=== PATIENT | female | born 1985 | race Caucasian/White ===

== ENCOUNTER 2018-04-10 13:46 | Outpatient (REF) | payer MEDICAID, SELFPAY ==
[2018-04-10 21:06] LABS: Abs Immature Grans 0.02 k/cumm (0.0-0.09); Absolute Basophil Count 0.03 k/cumm (0.0-0.2); Absolute Lymphocyte Count 1.82 k/cumm (1.2-3.4); Absolute Monocyte Count 0.63 k/cumm (0.11-0.7); Absolute Neutrophil Count 6.05 k/cumm (1.2-6.7); Basophils % 0.3; Eosinophils % 1.2; HCT 43.5 % (36.0-46.0); HGB 14.4 g/dL (12.0-15.5); Immature Grans % 0.2; Mean Corp. HGB Concentration 33.1 g/dL (32.0-36.0); Mean Corpuscular Hemoglobin 32.9 pg (27.0-33.0); Mean Corpuscular Volume 99.3 fL (80-95); Mean Platelet Volume 10.7 fL (8.0-11.0); Monocytes % 7.3; Platelet Count 240 x1000/uL (130-400); RBC 4.38 m/cumm (4.00-5.20); RBC Distribution Width 11.5 % (11.7-14.6); White Blood Cell Count 8.65 k/cumm (4.4-10.8)
[2018-04-10 21:31] LABS: ALT 28 U/L (12-78); AST 22 U/L (15-37); Albumin 4.2 g/dL (3.4-5.0); Alkaline Phosphatase 100 U/L (46-116); Anion Gap 14.1 mmol/L (3-11); BUN 14 mg/dL (7-18); Bilirubin, Total 0.5 mg/dL (0.2-1.0); CO2 22.9 mmol/L (21.0-32.0); CREATININE 0.69 mg/dL (0.55-1.02); Calcium 8.9 mg/dL (8.5-10.1); Chloride 105 mmol/L (98-107); Glucose 79 mg/dL (70-100); Potassium 3.9 mmol/L (3.5-5.1); Sodium 142 mmol/L (136-145); TSH (W/Ref FT4) 2.08 uIU/mL (0.358-3.74); Total Protein 7.8 g/dL (6.4-8.2)
== END 2018-04-10 14:06 ==
LOC: NCHCN 13:46
PROVIDERS: PCP Nurse Practitioner Family; Visit Provider Nurse Practitioner
DX: R19.7 Diarrhea, unspecified (principal); R10.84 Generalized abdominal pain; R19.8 Other specified symptoms and signs involving the digestive system and abdomen
CPT/HCPCS: 80053; 84443; 85025

== ENCOUNTER 2018-04-12 01:02 | Outpatient (CLI) | payer MEDICAID, SELFPAY ==
--- NOTE | 2018-04-12 09:50 | DI.COMBO_ITS ---
SYMPTOM/DIAGNOSIS: ABD PAIN, IRREGULAR BOWEL HABITS, R19.8, R10.84 ABDOMEN: The bowel gas pattern has a normal appearance. There is a normal quantity of stool, seen mainly in the right side of the colon. There is no abnormal colonic or small bowel or gastric distension. An IUD is incidentally noted. No organomegaly or urinary tract calculi are seen. No bony abnormalities are seen. IMPRESSION: Negative abdomen.
== END 2018-04-12 01:22 ==
PROVIDERS: PCP Nurse Practitioner Family; Visit Provider Nurse Practitioner
DX: R19.4 Change in bowel habit (principal); R10.84 Generalized abdominal pain
CPT/HCPCS: 74018

== ENCOUNTER 2018-08-27 11:20 | Emergency (ER) | payer MEDICAID, SELFPAY ==
[2018-08-27 11:23] VITALS: BP 134/100; PULSE 100; RESP 18; TEMP 36.8; O2SAT 100
--- NOTE | 2018-08-27 11:34 | DI.RAD_ITS ---
SYMPTOMS/DIAGNOSIS: FALL, PAIN, BRUISING LEFT ELBOW: Three views. No acute fracture or dislocation is identified. The soft tissues are unremarkable. IMPRESSION: No acute abnormality.
--- NOTE | 2018-08-27 11:35 | W.ED.GENAD ---
Discharge Plan Disposition Patient Disposition: HOME Condition: Improving Discharge Details Chief Complaint: Laceration Clinical Impression: Laceration of occipital scalp, Contusion of elbow, left Primary Care Provider: Lelia Mas ED Provider: Sandor Ball Home Meds and New Rx's Prescriptions: New cephalexin 500 mg capsule 500 mg PO TID 7 Days Qty: 21 RF: 0 Continued citalopram 20 MG tablet 20 mg PO DAILY Qty: 30 RF: 2 ibuprofen 600 MG tablet 600 mg PO Q6H PRN PRN (Reason: Abdominal Pain) Qty: 30 RF: 1 Discharge Instructions Instructions: Contusion in Adults (ED) Additional Instructions: Please return or see [facility] for removal of selena in 7 days time. Take antibiotics as prescribed. Continue both Tylenol and/or ibuprofen as needed for discomfort. Ice will reduce discomfort as well. Use sling as needed for comfort 2-3 days time. Return for any acute concern. 4-0 Prolene sutures were placed, they should be removed in the emergency department or in regular doctor's office in 7-10 days time. Small area with tissue adhesive/glue will wear off over proxy 1 week's time. Medical Decision Making 32-year-old female presents from Dr. Barraza's office where she presented this morning for evaluation of a slip and fall down the stairs with striking of her head last night. She also has dull, achy left elbow pain. She denies loss of consciousness. Her tetanus status is up-to-date. Referred for CT of the head to rule out skull fracture or intracranial injury as well as left elbow radiograph to rule out underlying bony injury. Topical anesthesia placed on laceration. CT scan of the head unremarkable, radiograph of the left elbow without evidence of fracture. Wound was anesthetized, irrigated, examined in a bloodless field without evidence of foreign body. Wound edges widely and therefore decision made to repair with large interrupted sutures rather than selena. There was a second small laceration measuring approximate 2 mm it was repaired with tissue adhesive. HPI General Mode of arrival: ambulatory. Date/Time Provider Initiated Documentation: 08/27/18 11:29. Limitations to Documentation: no limitations. Information obtained by: patient. History of Present Illness 32 year old F presents to the emergency department with the chief complaint of Fall last night downstairs, had injury and scalp laceration, L elbow pain, described as moderate, Quality is described as aching, and is localized to the head. Patient reports no radiation. Patient started experiencing this hour(s) and it has been constant. No relieving factors improve symptom(s), No exacerbating factors reported . Patient notes no other symptoms.. Related Data Home Medications Medication Instructions Recorded Confirmed ibuprofen 600 mg PO Q6H PRN PRN #30 tablet 10/24/16 citalopram 20 mg PO DAILY #30 tab-cap 03/13/17 cephalexin 500 mg PO TID 7 Days #21 cap 08/27/18 Previous Rx's Medication Instructions Recorded ibuprofen 600 mg PO Q6H PRN PRN #30 tablet 10/24/16 citalopram 20 mg PO DAILY #30 tab-cap 03/13/17 cephalexin 500 mg PO TID 7 Days #21 cap 08/27/18 Allergies Allergy/AdvReac Type Severity Reaction Status Date / Time No Known Allergies Allergy Unverified 03/30/17 10:31 General Stated Complaint: Laceration MEREDITH: 4 Review of Systems Review of Systems 6 systems reviewed and otherwise negative [facility] Medical History Abnormal Pap smear of cervix Anxiety and depression BMI 33.0-33.9,adult Depression History of hypertension IUD (intrauterine device) in place Neoplasm of uncertain behavior of skin Family History Mother No problems noted. Father Hyperlipidemia Brother Asthma Other Depression Essential hypertension Hypothyroidism Social History Smoking and Tabacco status: Never Exam Narrative Exam Narrative: GEN: awake, alert, oriented 3. Pleasant, well groomed, interactive. HEAD: Normocephalic, left superior occipital approximately 1.5 inch laceration. ENT: Mucous membranes moist, oropharynx unremarkable, External ear exam unremarkable EYES: PERRL, EOMI NECK: Full ROM, no YVONNE, no menigismus CHEST/RESP: Nontender, clear to auscultation bilateral, no wheeze/rhonchi/rales CARDIOVASCULAR: RRR, no murmur, rub juan. 2+ Rad pulse bilateral Back: Nontender, no step-off or deform ABDOMEN: Soft, nontender, no mass. +Bowel sounds EXT: Full ROM, no edema, no rash. Ecchymosis and tenderness around the left elbow. Range of motion intact, distal motor and sensory testing normal Neuro: Grossly normal neurologic exam, conversant, interactive. Psych: Speech fluent, thoughts congruent, affect normal Course Vital Signs Temperature 36.8 C 08/27/18 11:23 Pulse 100 H 08/27/18 11:23 Respiratory Rate 18 08/27/18 11:23 Blood Pressure 134/100 H 08/27/18 11:23 Pulse Oximetry 100 08/27/18 11:23 Temperature 36.8 C 08/27/18 11:23 Temperature Source Skin 08/27/18 11:23 Pulse 100 H 08/27/18 11:23 Respiratory Rate 18 08/27/18 11:23 Respiratory Effort Non-Labored 08/27/18 11:27 Blood Pressure 134/100 H 08/27/18 11:23 Pulse Oximetry 100 08/27/18 11:23 Oxygen Delivery Method Room Air 08/27/18 11:23 Oxygen Flow Rate 0 08/27/18 11:23 Pain Level 7 08/27/18 11:23 Procedures Laceration Laceration 1: Site: scalp Side (If applicable): left Size (cm): 5 Description: linear Depth: simple, single layer Local Anesthetic: Lidocaine 1% Pre-repair: wound explored Skin layer closed with: other (prolene) Size (cm): 4-0 Number of sutures: 4
--- NOTE | 2018-08-27 11:38 | ED.GENADUL_ITS ---
Discharge Plan Disposition Patient Disposition: HOME Condition: Improving Discharge Details Chief Complaint: Laceration Clinical Impression: Laceration of occipital scalp, Contusion of elbow, left Primary Care Provider: Lelia Mas ED Provider: Sandor Ball Home Meds and New Rx's Prescriptions: New cephalexin 500 mg capsule 500 mg PO TID 7 Days Qty: 21 RF: 0 Continued citalopram 20 MG tablet 20 mg PO DAILY Qty: 30 RF: 2 ibuprofen 600 MG tablet 600 mg PO Q6H PRN PRN (Reason: Abdominal Pain) Qty: 30 RF: 1 Discharge Instructions Instructions: Contusion in Adults (ED) Additional Instructions: Please return or see [facility] for removal of selena in 7 days time. Take antibiotics as prescribed. Continue both Tylenol and/or ibuprofen as needed for discomfort. Ice will reduce discomfort as well. Use sling as needed for comfort 2-3 days time. Return for any acute concern. 4-0 Prolene sutures were placed, they should be removed in the emergency department or in regular doctor's office in 7-10 days time. Small area with tissue adhesive/glue will wear off over proxy 1 week's time. Medical Decision Making 32-year-old female presents from Dr. Barraza's office where she presented this morning for evaluation of a slip and fall down the stairs with striking of her head last night. She also has dull, achy left elbow pain. She denies loss of consciousness. Her tetanus status is up-to-date. Referred for CT of the head to rule out skull fracture or intracranial injury as well as left elbow radiograph to rule out underlying bony injury. Topical anesthesia placed on laceration. CT scan of the head unremarkable, radiograph of the left elbow without evidence of fracture. Wound was anesthetized, irrigated, examined in a bloodless field without evidence of foreign body. Wound edges widely and therefore decision made to repair with large interrupted sutures rather than selena. There was a second small laceration measuring approximate 2 mm it was repaired with tissue adhesive. HPI General Mode of arrival: ambulatory . Date/Time Provider Initiated Documentation: 08/27/18 11:29 . Limitations to Documentation: no limitations . Information obtained by: patient . History of Present Illness 32 year old F presents to the emergency department with the chief complaint of Fall last night downstairs, had injury and scalp laceration, L elbow pain, described as moderate, Quality is described as aching, and is localized to the head. Patient reports no radiation. Patient started experiencing this hour(s) and it has been constant. No relieving factors improve symptom(s), No exacerbating factors reported . Patient notes no other symptoms.. Related Data Home Medications Medication Instructions Recorded Confirmed ibuprofen 600 mg PO Q6H PRN PRN #30 tablet 10/24/16 citalopram 20 mg PO DAILY #30 tab-cap 03/13/17 cephalexin 500 mg PO TID 7 Days #21 cap 08/27/18 Previous Rx's Medication Instructions Recorded ibuprofen 600 mg PO Q6H PRN PRN #30 tablet 10/24/16 citalopram 20 mg PO DAILY #30 tab-cap 03/13/17 cephalexin 500 mg PO TID 7 Days #21 cap 08/27/18 Allergies Allergy/AdvReac Type Severity Reaction Status Date / Time No Known Allergies Allergy Unverified 03/30/17 10:31 General Stated Complaint: Laceration MEREDITH: 4 Review of Systems Review of Systems 6 systems reviewed and otherwise negative [facility] Medical History Abnormal Pap smear of cervix Anxiety and depression BMI 33.0-33.9,adult Depression History of hypertension IUD (intrauterine device) in place Neoplasm of uncertain behavior of skin Family History Mother No problems noted. Father Hyperlipidemia Brother Asthma Other Depression Essential hypertension Hypothyroidism Social History Smoking and Tabacco status: Never Exam Narrative Exam Narrative: GEN: awake, alert, oriented 3. Pleasant, well groomed, interactive. HEAD: Normocephalic, left superior occipital approximately 1.5 inch laceration. ENT: Mucous membranes moist, oropharynx unremarkable, External ear exam unremarkable EYES: PERRL, EOMI NECK: Full ROM, no YVONNE, no menigismus CHEST/RESP: Nontender, clear to auscultation bilateral, no wheeze/rhonchi/rales CARDIOVASCULAR: RRR, no murmur, rub juan. 2+ Rad pulse bilateral Back: Nontender, no step-off or deform ABDOMEN: Soft, nontender, no mass. +Bowel sounds EXT: Full ROM, no edema, no rash. Ecchymosis and tenderness around the left elbow. Range of motion intact, distal motor and sensory testing normal Neuro: Grossly normal neurologic exam, conversant, interactive. Psych: Speech fluent, thoughts congruent, affect normal Course Vital Signs Temperature 36.8 C 08/27/18 11:23 Pulse 100 H 08/27/18 11:23 Respiratory Rate 18 08/27/18 11:23 Blood Pressure 134/100 H 08/27/18 11:23 Pulse Oximetry 100 08/27/18 11:23 Temperature 36.8 C 08/27/18 11:23 Temperature Source Skin 08/27/18 11:23 Pulse 100 H 08/27/18 11:23 Respiratory Rate 18 08/27/18 11:23 Respiratory Effort Non-Labored 08/27/18 11:27 Blood Pressure 134/100 H 08/27/18 11:23 Pulse Oximetry 100 08/27/18 11:23 Oxygen Delivery Method Room Air 08/27/18 11:23 Oxygen Flow Rate 0 08/27/18 11:23 Pain Level 7 08/27/18 11:23 Procedures Laceration Laceration 1: Site: scalp Side (If applicable): left Size (cm): 5 Description: linear Depth: simple, single layer Local Anesthetic: Lidocaine 1% Pre-repair: wound explored Skin layer closed with: other (prolene) Size (cm): 4-0 Number of sutures: 4
[2018-08-27] MEDS: Lidocaine/Epinephri/Tetracaine Topical Gel 3 ML TP (11:42)
--- NOTE | 2018-08-27 12:03 | DI.CT_ITS ---
SYMPTOMS/DIAGNOSIS: FALL, POSTERIOR TRAUMA AND PAIN CT BRAIN: Noncontrast. No priors. There is a normal uribe/white matter differentiation. The ventricles are intact. The basilar cisterns are patent. No intracranial hemorrhage, acute midline shift or mass effect. The visualized paranasal sinuses are clear. The mastoid air cells are well pneumatized. There is no evidence of a calvarial fracture. There is a scalp hematoma overlying the left parietal bone. IMPRESSION: 1. No acute intracranial process. No skull fracture. 2. Left parietal scalp hematoma. The findings were discussed with Dr. Sandor Ball of the emergency department on the date of the examination.
[2018-08-27] MEDS: Ketorolac 10 MG TAB PO (13:00)
[2018-08-27 13:25] VITALS: BP 134/100; PULSE 100; RESP 18; TEMP 36.8; O2SAT 100
== END 2018-08-27 13:02 | disposition home or self-care (01) ==
PROVIDERS: Emergency Provider Emergency Medicine; PCP Nurse Practitioner Family
DX: S09.90XA Unspecified injury of head, initial encounter (principal); S01.01XA Laceration without foreign body of scalp, initial encounter; S50.02XA Contusion of left elbow, initial encounter; W10.8XXA Fall (on) (from) other stairs and steps, initial encounter
CPT/HCPCS: 12001; 99284; 70450; 73080; 99281; L3650

== ENCOUNTER 2018-11-12 10:52 | Outpatient (REF) | payer MEDICAID, SELFPAY ==
[2018-11-12 21:56] LABS: Abs Immature Grans 0.05 k/cumm (0.0-0.09); Absolute Basophil Count 0.02 k/cumm (0.0-0.2); Absolute Eosinophil Count 0.08 k/cumm (0.0-0.7); Absolute Lymphocyte Count 1.65 k/cumm (1.2-3.4); Absolute Monocyte Count 0.49 k/cumm (0.11-0.7); Absolute Neutrophil Count 4.44 k/cumm (1.2-6.7); Basophils % 0.3; Eosinophils % 1.2; HCT 45.1 % (36.0-46.0); HGB 14.5 g/dL (12.0-15.5); Immature Grans % 0.7; Lymphocytes % 24.5; Mean Corp. HGB Concentration 32.2 g/dL (32.0-36.0); Mean Corpuscular Hemoglobin 32.7 pg (27.0-33.0); Mean Corpuscular Volume 101.8 fL (80-95); Mean Platelet Volume 10.8 fL (8.0-11.0); Monocytes % 7.3; Platelet Count 268 x1000/uL (130-400); RBC 4.43 m/cumm (4.00-5.20); RBC Distribution Width 11.9 % (11.7-14.6); White Blood Cell Count 6.73 k/cumm (4.4-10.8)
[2018-11-12 22:31] LABS: TSH (W/Ref FT4) 1.99 uIU/mL (0.358-3.74); Vitamin B12 285 pg/mL (193-986)
[2018-11-14 05:10] LABS: Vitamin D 25 Total 31.9 ng/ml (30-100)
== END 2018-11-12 11:12 ==
LOC: NCHCN 10:52
PROVIDERS: PCP Nurse Practitioner Family; Visit Provider Nurse Practitioner Family
DX: R53.83 Other fatigue (principal); R20.8 Other disturbances of skin sensation
CPT/HCPCS: 82306; 82607; 84443; 85025

== ENCOUNTER 2019-01-18 14:01 | Emergency (ER) | payer MEDICAID, SELFPAY ==
[2019-01-18] VITALS (25 sets, daily range): BP systolic 106–137; BP diastolic 61–106; PULSE 0–139; RESP 13–29; TEMP 36.6; O2SAT 90–98
--- NOTE | 2019-01-18 14:01 | DI.RAD_ITS ---
SYMPTOM/DIAGNOSIS: TRAUMA LEFT ELBOW: Three views. No acute fracture or dislocation is seen. Radiopaque densities are seen in the soft tissues overlying the olecranon process. IMPRESSION: 1. No acute fracture or dislocation 2. Debris seen in the soft tissues overlying the olecranon.
--- NOTE | 2019-01-18 14:01 | DI.RAD_ITS ---
SYMPTOM/DIAGNOSIS: PAIN, TRAUMA LEFT KNEE: Four views. No acute fracture or dislocation is seen. There is swelling of the soft tissues in the prepatellar region. No radiopaque foreign bodies are seen. IMPRESSION: No acute fracture or dislocation.
--- NOTE | 2019-01-18 14:01 | DI.CT_ITS ---
SYMPTOM/DIAGNOSIS: TRAUMA, ALTERED CT BRAIN: Noncontrast. Comparison 08/27/18 The ventricles and sulci are consistent with the patient's age. No acute intracranial hemorrhage, midline shift or mass effect is identified. The ventricles are intact. The basilar cisterns are patent. The visualized paranasal sinuses are clear. No fluid levels are seen. The mastoid air cells are well pneumatized. The calvarium is intact. There is patient motion artifact present. This does limit the examination. IMPRESSION: No acute intracranial process. CT CERVICAL SPINE: Multiple contiguous axial images of the cervical spine were obtained. Sagittal and coronal reformatted images were also performed. There is patient motion artifact present. This does limit the integrity of the examination. There is straightening of the normal cervical curvature. No definite acute fracture or subluxation is seen. The patient motion artifact is most significant from the C3 through C5 level. There is no prevertebral soft tissue swelling. The lung apices are clear. There are mildly enlarged lymph nodes seen in the neck. The largest has a short axis diameter of 8 mm. IMPRESSION: 1. Patient motion artifact limiting examination of the mid cervical spine. If there is continued concern for a cervical spine fracture a repeat CT scan of the cervical spine should be obtained.
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
[2019-01-18] MEDS: fentaNYL 100 MCG/2 ML VIAL 50 MCG IVP (14:13)
[2019-01-18 14:21] LABS: Abs Immature Grans 0.04 k/cumm (0.0-0.09); Absolute Basophil Count 0.04 k/cumm (0.0-0.2); Absolute Lymphocyte Count 3.84 k/cumm (1.2-3.4); Basophils % 0.3; Eosinophils % 0.8; HCT 41.3 % (36.0-46.0); HGB 13.9 g/dL (12.0-15.5); Immature Grans % 0.3; Lymphocytes % 32.6; Mean Corp. HGB Concentration 33.7 g/dL (32.0-36.0); Mean Corpuscular Hemoglobin 32.4 pg (27.0-33.0); Mean Corpuscular Volume 96.3 fL (80-95); Mean Platelet Volume 9.7 fL (8.0-11.0); Monocytes % 5.3; Neutrophils % 60.7; Platelet Count 372 x1000/uL (130-400); RBC 4.29 m/cumm (4.00-5.20); RBC Distribution Width 11.5 % (11.7-14.6); White Blood Cell Count 11.79 k/cumm (4.4-10.8)
[2019-01-18 14:22] LABS: Absolute Eosinophil Count 0.09 k/cumm (0.0-0.7); Absolute Monocyte Count 0.62 k/cumm (0.11-0.7); Absolute Neutrophil Count 7.16 k/cumm (1.2-6.7)
[2019-01-18 15:00] LABS: ALT 22 U/L (12-78); AST 18 U/L (15-37); Albumin 4.1 g/dL (3.4-5.0); Alkaline Phosphatase 75 U/L (46-116); Anion Gap 14.3 mmol/L (3-11); BUN 11 mg/dL (7-18); Bilirubin, Total 0.2 mg/dL (0.2-1.0); CO2 22.7 mmol/L (21.0-32.0); CREATININE 0.79 mg/dL (0.55-1.02); Chloride 109 mmol/L (98-107); Glucose 91 mg/dL (70-100); Potassium 4.1 mmol/L (3.5-5.1); Sodium 146 mmol/L (136-145); Total Protein 7.7 g/dL (6.4-8.2)
[2019-01-18 15:07] LABS: ETHANOL BLOOD 310.2 mg/dL (<3)
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
[2019-01-18 15:23] LABS: *AMPHETAMINES SCREEN URINE Negative (Negative); *BARBITURATES SCREEN URINE Negative (Negative); *BENZODIAZEPINES SCREEN URINE Negative (Negative); Cannabinoids THC Negative (Negative); Cocaine Screen,Urine Negative (Negative); METHADONE URINE SCREEN Negative (Negative); OPIATES URINE SCREEN Negative (Negative)
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
[2019-01-18 15:26] LABS: Tricyclic Antidepressants Negative (Negative)
[2019-01-18] MEDS: HYDROmorphone 2 MG/ML VIAL 1 MG IVP ×2 (15:27→19:50)
--- NOTE | 2019-01-18 15:30 | DI.RAD_ITS ---
SYMPTOM/DIAGNOSIS: PAIN, SWELLING RIGHT HAND: Three views. No acute fracture or dislocation is identified. There is soft tissue swelling of the hand particularly medially. There are radiopaque densities seen in the soft tissues of the medial aspect of the right little finger. IMPRESSION: No acute fracture or dislocation. 2. Radiopaque densities seen in the soft tissues of the right little finger.
--- NOTE | 2019-01-18 15:30 | NUR.NOTE ---
Nursing Note: pt to second CT
--- NOTE | 2019-01-18 15:42 | DI.CT_ITS ---
SYMPTOM/DIAGNOSIS: TRAUMA CT CERVICAL SPINE: Multiple contiguous axial images of the cervical spine were obtained. There is very mild patient motion artifact present. There is normal alignment. No acute fractures or subluxations are seen. The C-1 and C2 junction is well maintained. There is no prevertebral soft tissue swelling. IMPRESSION: No acute fracture or subluxation in the cervical spine.
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
[2019-01-18] MEDS: Normal Saline 1,000 ML 1000 ML IV (16:04)
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
[2019-01-18] MEDS: THIAMINE 100 MG in Normal Saline 100 ML 200 MG IVPB (16:12)
[2019-01-18] MEDS: LORazepam 2 MG/ML VIAL 0.5 MG IVP (17:27)
--- NOTE | 2019-01-18 21:17 | NUR.NOTE ---
Addendum entered by Mel Marinelli 01/18/19 23:08: not able to suture left elbow. bacitracin, telfa, gauze and kerlex wrap to the elbow. Original Note: Nursing Note: all abrasions cleaned with hibiclens and saline, bacatricin applied to all areas. left elbow and right 5th finger LMX cream applied, right 5th finger DSD, left elbow sutured by MD. patient ambulated to BR without difficulty voided qs, taking po fluids well, no n/v.
--- NOTE | 2019-01-19 03:41 | NUR.NOTE ---
faxed referal to [facility] on 01/19/19Nursing Note:
== END 2019-01-18 22:45 | disposition home or self-care (01) ==
PROVIDERS: Emergency Provider Student in an Organized Health Care Education/Training Program; PCP Nurse Practitioner Family
DX: S51.012A Laceration without foreign body of left elbow, initial encounter (principal); S61.226A Laceration with foreign body of right little finger without damage to nail, initial encounter; S50.811A Abrasion of right forearm, initial encounter; S80.212A Abrasion, left knee, initial encounter; M25.562 Pain in left knee; M54.5 Low back pain; V87.8XXA Person injured in other specified noncollision transport accidents involving motor vehicle (traffic), initial encounter; F10.120 Alcohol abuse with intoxication, uncomplicated; Y90.8 Blood alcohol level of 240 mg/100 ml or more
CPT/HCPCS: 36415; 74177; 80053; 80307; 96361; 96365; 96375; 96376; 99285; 70450; 71260; 72125; 73080; 73130; 73564; 80320; 85025; J2060; J3010

== ENCOUNTER 2019-01-30 12:26 | Outpatient (REF) | payer MEDICAID, SELFPAY ==
[2019-01-30 21:43] LABS: ALT 25 U/L (12-78); AST 13 U/L (15-37); Albumin 2.6 g/dL (3.4-5.0); Alkaline Phosphatase 66 U/L (46-116); Anion Gap 10.3 mmol/L (3-11); BUN 16 mg/dL (7-18); Bilirubin, Total 0.2 mg/dL (0.2-1.0); CO2 24.7 mmol/L (21.0-32.0); CREATININE 0.78 mg/dL (0.55-1.02); Calcium 9.2 mg/dL (8.5-10.1); Chloride 108 mmol/L (98-107); Glucose 85 mg/dL (70-100); Potassium 4.5 mmol/L (3.5-5.1); Sodium 143 mmol/L (136-145); Total Protein 7.6 g/dL (6.4-8.2)
== END 2019-01-30 12:46 ==
LOC: NCHCN 12:26
PROVIDERS: PCP Nurse Practitioner Family; Visit Provider Nurse Practitioner Family
DX: Z79.1 Long term (current) use of non-steroidal anti-inflammatories (NSAID) (principal)
CPT/HCPCS: 80053

== ENCOUNTER 2019-02-07 21:11 | Emergency (ER) | payer MEDICAID, SELFPAY ==
[2019-02-07 21:10] VITALS: BP 130/81; PULSE 130; RESP 16; TEMP 36.6; O2SAT 98
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
--- NOTE | 2019-02-07 21:35 | NUR.NOTE ---
Nursing Note: Patient reports that she had her Elbow smashed off a table. When patient was in the bathroom this song writer noted multiple abrasions in various stages of healing along with bruises. She has an kimberly bandage on her L knee. Patient also has a black eye at this time.
--- NOTE | 2019-02-07 22:13 | DI.RAD_ITS ---
SYMPTOM/DIAGNOSIS: RE INJURY, HIT ELBOW ON TABLE LEFT ELBOW: Three views were obtained. There is no evidence of an elbow joint effusion or hemarthrosis. No evidence of acute fracture.
--- NOTE | 2019-02-07 22:30 | DI.VRAD_ITS ---
EXAM: XR Left Elbow EXAM DATE/TIME: 02/07/2019 9:39 PM CLINICAL HISTORY: 33 years old, female; Injury or trauma; Injury history: Hit elbow against table; Initial encounter; Abrasion and wound; Left; Injury date: 02/07/2019 TECHNIQUE: Imaging protocol: XR Left elbow. Views: 3 or more views. COMPARISON: CR XR elbow LT complete 01/18/2019 2:46 PM FINDINGS: Bones/joints: Typical for age. No evidence of acute fracture. Soft tissues: Unremarkable. IMPRESSION: No acute findings. Dictated and Authenticated by: Jonnathan Tavarez MD. Ordering:MARGARITA Ac MD
[2019-02-07 22:35] VITALS: BP 130/81; PULSE 80; RESP 16; TEMP 36.6; O2SAT 98
== END 2019-02-07 22:36 | disposition other institution (70) ==
PROVIDERS: Emergency Provider Emergency Medicine; PCP Nurse Practitioner Family
DX: S59.902A Unspecified injury of left elbow, initial encounter (principal); F10.120 Alcohol abuse with intoxication, uncomplicated; W22.09XA Striking against other stationary object, initial encounter
CPT/HCPCS: 81025; 99285; 73080; 99284

== ENCOUNTER 2019-02-17 01:24 | Outpatient (CLI) | payer MEDICAID, SELFPAY ==
--- NOTE | 2019-02-17 11:14 | DI.RAD_ITS ---
SYMPTOM/DIAGNOSIS: BACK PAIN M54.89 SACRUM: 02/17 Two views were obtained. S-I joints show minimal spurring and slight sclerosis is noted in the iliac bones without specific evidence of sacroiliitis. No other bony abnormality seen. Note is made of an IUD in the pelvic midline.
--- NOTE | 2019-02-17 11:15 | DI.RAD_ITS ---
SYMPTOM/DIAGNOSIS: ELBOW PAIN M25.522 LEFT ELBOW: 02/17/19 Three views were obtained. The fat pads are unremarkable with no evidence of a joint effusion. No bony abnormality seen.
== END 2019-02-17 01:44 ==
PROVIDERS: PCP Nurse Practitioner Family; Visit Provider Nurse Practitioner Family
DX: M54.5 Low back pain (principal); Z97.5 Presence of (intrauterine) contraceptive device; M53.3 Sacrococcygeal disorders, not elsewhere classified; M25.522 Pain in left elbow
CPT/HCPCS: 72220; 73080

== ENCOUNTER 2019-04-08 01:33 | Outpatient (CLI) | payer MEDICAID, SELFPAY ==
--- NOTE | 2019-04-08 11:01 | DI.MRI_ITS ---
EXAM: MR LUMBAR SPINE WO CLINICAL HISTORY: low back pain and numbness along the left LE, M54.5. TECHNIQUE: Multiplanar multisequence MRI was performed. COMPARISON: XR sacrum from 02/17/2019 FINDINGS: Vertebral bodies are well maintained in height. The T12-L1, L1-2 discs appear intact. At L2-3, there is disc bulging which is eccentric toward the left causing slight neural foraminal narrowing. At L3- 4, there is mild disc bulging eccentric toward the right which encroaches on the right neural foramen . At L4-5, there is disc bulging eccentric toward the left, encroaching on the left neural foramen. At L5-S1, there is no significant disc bulging or neural foraminal encroachment. There is no centra l canal stenosis at any level. The conus medullaris appears normal. IMPRESSION: Multilevel asymmetric disc bulging causing neural foraminal narrowing to mild degree.
== END 2019-04-08 01:53 ==
PROVIDERS: PCP Nurse Practitioner Family; Visit Provider Physician Assistant
DX: M54.5 Low back pain (principal); R20.0 Anesthesia of skin; M99.53 Intervertebral disc stenosis of neural canal of lumbar region
CPT/HCPCS: 72148

== ENCOUNTER 2019-04-30 09:33 | Outpatient (CLI) | payer MEDICAID, SELFPAY ==
--- NOTE | 2019-04-30 09:27 | DI.RAD_ITS ---
EXAM: XR ELBOW LT COMPLETE INDICATION: Left elbow injury. COMPARISON: XR elbow LT complete from 02/07/2019 XR elbow LT complete from 02/17/2019 TECHNIQUE: 2D digital imaging was performed. FINDINGS: No bone or joint abnormality is identified. The soft tissues are unremarkable.
== END 2019-04-30 09:53 ==
PROVIDERS: PCP Nurse Practitioner Family; Visit Provider Physician Assistant
DX: M25.522 Pain in left elbow (principal); S50.02XA Contusion of left elbow, initial encounter
CPT/HCPCS: 73080

== ENCOUNTER 2019-06-17 07:20 | Outpatient (CLI) | payer MEDICAID, SELFPAY ==
[2019-06-17 07:29] VITALS: BP 113/78; PULSE 86; RESP 22; TEMP 37.4; O2SAT 100
--- NOTE | 2019-06-17 08:31 | PDOC.PAIN_ITS ---
Pain Clinic Procedure Note Procedure Note Procedure Note: INTRA-ARTICULAR SI JOINT INJECTION BENNIE SILVA has been referred to the [facility] for intra- articular SI joint injection. COMMENTS: patient reports bilateral buttock pain, consistent with sacroiliac joint mediated pain. She was evaluated by Mirtha Rose APRN for left sided SI pain, however, on brief examination today prior to procedure, pt exhibits tenderness to bilateral PSIS. Patient was interviewed and the medical record reviewed. There were no medical, pharmacologic, radiographic or other structural contraindications to attempting fluoroscopically guided intra-articular SI joint injection. Risks and expected side effects as well as potential benefit of the procedure were reviewed and voiced concerns addressed. The printed consent form was signed and witnessed. Standard time-out procedure was performed. Patient was placed in the prone position on the fluoroscopy table and automated blood pressure cuff and pulse oximeter applied. The skin entry point for approaching bilateral SI joints was identified under the most advantageous fluoroscopic view and marked. Following thorough Chlorhexadine preparation of the skin and draping and 1% lidocaine infiltration of the skin entry point and subcutaneous tissues, a 22 gauge spinal needle was placed under fluoroscopic guidance into bilateral SI joints was identified under the most advantageous fluoroscopic view and marked. Following thorough Chlorhexadine preparation of the skin and draping and 1% lidocaine infiltration of the skin entry point and subcutaneous tissues, a 22 gauge spinal needle was placed under fluoroscopic guidance into bilateral SI joint. Intra-articular placement was confirmed by a clear arthrogram resulting from the injection of 0.25ml Omnipaque 240, 1ml 1% lidocaine, and 40mg Depomedrol were injected intra-articularily with an initial reproduction of a significant component of the usual pain. Vital signs were stable throughout the procedure and were as recorded in the docflowsheet by the nursing staff. If given, dosages of intravenous drugs for anxiolysis and analgesia were documented in MAR. Follow up plans and appointments were discussed with the patient. Post procedure instruction was given as documented in nursing documentation and having met discharge criteria, and was discharged from the [facility]. COMMENTS: patient tolerated procedure well. Sushil Foote MD Pain Management CC: Lelia Mas
[2019-06-17 08:42] VITALS: BP 108/68; PULSE 75; RESP 20; O2SAT 100
[2019-06-17] MEDS: Omnipaque 240 MG/ML 50 ML BTL IJ (09:04)
[2019-06-17] MEDS: methylPREDNISolone ACETATE 80 MG/ML VIAL IJ (09:04)
--- NOTE | 2019-06-17 09:22 | DI.RAD_ITS ---
EXAM: XR PAIN CLINIC SACRIOILIAC 2V CLINICAL HISTORY: Dx: Sacroiliac Joint Dysfunction,sacroiliac joint injection TECHNIQUE: Fluoroscopy was provided for the referring physician for guidance with performing injecti on procedure. COMPARISON: No exams were available for comparison FINDINGS: Please see procedure note for details. FLUORO TIME: 29.6 seconds
== END 2019-06-17 07:40 ==
PROVIDERS: PCP Nurse Practitioner Family; Visit Provider Internal Medicine
DX: M53.3 Sacrococcygeal disorders, not elsewhere classified (principal)
CPT/HCPCS: 27096; 72200; J1040; Q9967

== ENCOUNTER 2019-07-24 15:54 | Outpatient (CLI) | payer MEDICAID, SELFPAY ==
--- NOTE | 2019-07-24 13:35 | DI.RAD_ITS ---
EXAM: XR THORACIC SPINE COMPLETE INDICATION: RIGHT THORACIC BACK PAIN, M54.6. COMPARISON: No exams were available for comparison TECHNIQUE: 2D digital imaging was performed. FINDINGS: There is normal alignment of the thoracic spine. Mild degenerative changes are seen in the spine. T he paraspinal lines appear intact. No acute fracture or subluxation is seen. IMPRESSION: Mild degenerative changes in the thoracic spine.
== END 2019-07-24 16:14 ==
PROVIDERS: PCP Nurse Practitioner Family; Visit Provider Nurse Practitioner Family
DX: M54.6 Pain in thoracic spine (principal); M47.814 Spondylosis without myelopathy or radiculopathy, thoracic region
CPT/HCPCS: 72072

== ENCOUNTER 2020-03-10 16:30 | Outpatient (REF) | payer MEDICAID, SELFPAY | END 2020-03-10 16:50 | LOC: NCHCN 16:30 | PROVIDERS: PCP Nurse Practitioner Family; Visit Provider Nurse Practitioner Family | DX: R39.15 Urgency of urination (principal) | CPT/HCPCS: 87480; 87510; 87660 ==

== ENCOUNTER 2020-03-25 09:36 | Outpatient (REF) | payer MEDICAID, SELFPAY ==
--- NOTE | 2020-03-25 09:15 | PAPFT_PTH ---
PATIENT: Antonio Huizar LOC: [facility]#:[id number] AGE/SX: 34/F ROOM: RE03/25/[address]: Tabatha Ortega : 1985 BED: DIS: 03/25/2020 SPEC #: [id number] RECD: 03/26/20 12:55 STATUS: LURDES REQ #: [id number] STEPHANIE: 03/25/20 09:[address]: Tabatha Ortega DEPT: [facility] Cytology RECD BY: Ebony Christianson ENTERED: 03/26/20 12:56 SP TYPE: PAPFT OTHR DR: Lelia Mas Tissues: 1 - CX/ENDOCX FOR PAP SMEARS Procedures: PAP THIN PREP/UVM Screening HPV DNA PROBE Comments: [id number] (CHLAMYDIA/GC)
[2020-03-29 14:38] LABS: Chlamydia Result Negative (Negative); GC Result Negative (Negative)
== END 2020-03-25 09:56 ==
LOC: NCHCN 09:36
PROVIDERS: PCP Nurse Practitioner Family; Visit Provider Family Medicine
DX: N89.8 Other specified noninflammatory disorders of vagina (principal); R39.15 Urgency of urination; Z12.4 Encounter for screening for malignant neoplasm of cervix; Z01.419 Encounter for gynecological examination (general) (routine) without abnormal findings; Z11.51 Encounter for screening for human papillomavirus (HPV); Z11.3 Encounter for screening for infections with a predominantly sexual mode of transmission; Z97.5 Presence of (intrauterine) contraceptive device
CPT/HCPCS: 87491; 87591; 88142; 87086; 87480; 87510; 87624; 87660

== ENCOUNTER 2020-04-12 20:29 | Inpatient (IN) | payer MEDICAID, SELFPAY ==
[2020-04-12] VITALS (14 sets, daily range): BP systolic 121; BP diastolic 86; PULSE 103–124; RESP 14–18; TEMP 37.1; O2SAT 96–100
--- NOTE | 2020-04-12 20:30 | RT.EKG_ITS ---
APPROVED REPORT Exam: Resting ECG Patient Location: E HR:112 bpm ECG Measurements Heart Rate 112 AXIS ND 149 P 58 QRSd 97 QRS 72 QT 341 T 48 QTc 466 Conclusion Sinus tachycardia. rate 112. Left atrial enlargement.
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
[2020-04-12] MEDS: Lactated Ringers 1,000 ML 1000 ML IV (20:59)
[2020-04-12 21:09] LABS: Abs Immature Grans 0.07 10^3/uL (0.0-0.06); Absolute Basophil Count 0.04 10^3/uL (0.0-0.2); Absolute Eosinophil Count 0.12 10^3/uL (0.0-0.7); Absolute Lymphocyte Count 2.47 10^3/uL (1.2-3.4); Absolute Monocyte Count 0.44 10^3/uL (0.1-0.8); Absolute Neutrophil Count 6.45 10^3/uL (1.2-6.7); Basophils % 0.4; Eosinophils % 1.3; HCT 46.4 % (36.0-46.0); Immature Grans % 0.7; Lymphocytes % 25.8; MCH 30.5 pg (27.0-33.0); MCHC 32.3 % (32.0-36.0); MCV 94.5 fL (80-95); MPV 10.1 fL (8.0-11.0); Monocytes % 4.6; Neutrophils % 67.2; Nucleated RBC 0 %; Platelet Count 318 10^3/uL (130-400); RBC 4.91 10^6/uL (3.93-5.22); RDW 12.1 % (11.7-14.6); RDW-SD 42.5 fL; WBC 9.59 10^3/uL (4.4-10.8)
[2020-04-12 21:22] LABS: Salicylate < 2.8 mg/dL (2.8-20.0)
[2020-04-12 21:23] LABS: Acetaminophen < 2 ug/mL (10-30)
[2020-04-12 21:25] LABS: ALT 25 U/L (14-59); AST 20 U/L (15-37); Albumin 4.3 g/dL (3.4-5.0); Alkaline Phosphatase 67 U/L (46-116); Anion Gap 13.3 mmol/L (3-11); BUN 10 mg/dL (7-18); Bilirubin, Total 0.2 mg/dL (0.2-1.0); CO2 21.7 mmol/L (21.0-32.0); CREATININE 0.83 mg/dL (0.55-1.02); Calcium 8.7 mg/dL (8.5-10.1); Chloride 107 mmol/L (98-107); Glucose 110 mg/dL (74-106); Potassium 3.5 mmol/L (3.5-5.1); Sodium 142 mmol/L (136-145); Total Protein 8.3 g/dL (6.4-8.2)
[2020-04-12 21:36] LABS: ETHANOL BLOOD 263.3 mg/dL (<3); Magnesium 2.6 mg/dL (1.8-2.4); TSH 1.27 uIU/mL (0.36-3.74)
[2020-04-12 21:37] LABS: Troponin I < 0.05 ng/mL (<0.06)
[2020-04-12 22:02] LABS: *AMPHETAMINES SCREEN URINE Negative (Negative); *BARBITURATES SCREEN URINE Negative (Negative); *BENZODIAZEPINES SCREEN URINE Negative (Negative); Cannabinoids THC Negative (Negative); Cocaine Screen,Urine Negative (Negative); METHADONE URINE SCREEN Negative (Negative); OPIATES URINE SCREEN Negative (Negative)
[2020-04-12 22:10] LABS: Tricyclic Antidepressants Negative (Negative)
[2020-04-12] MEDS: LORazepam 2 MG/ML VIAL IVP (22:17)
[2020-04-12] MEDS: diphenhydrAMINE 50 MG/ML VIAL (22:20)
[2020-04-12] MEDS: Haloperidol 5 MG/ML VIAL (22:20)
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
[2020-04-13] VITALS (65 sets, daily range): BP systolic 94–132; BP diastolic 50–88; PULSE 76–130; RESP 8–25; TEMP 36.5–36.8; O2SAT 94–100
[2020-04-13] MEDS: LORazepam 2 MG/ML VIAL 0.5 MG IVP
[2020-04-13] MEDS: LORazepam 2 MG/ML VIAL IVP ×3 (01:32→06:14)
[2020-04-13] MEDS: Normal Saline Flush 10 ML SYR IVP ×2 (03:53→06:14)
[2020-04-13] MEDS: Lactated Ringers 1,000 ML 150 ML IV ×3 (04:00→22:00)
[2020-04-13 08:24] LABS: Abs Immature Grans 0.03 10^3/uL (0.0-0.06); Absolute Basophil Count 0.02 10^3/uL (0.0-0.2); Absolute Eosinophil Count 0.12 10^3/uL (0.0-0.7); Absolute Lymphocyte Count 1.94 10^3/uL (1.2-3.4); Absolute Monocyte Count 0.49 10^3/uL (0.1-0.8); Basophils % 0.3; Eosinophils % 1.8; HCT 37.6 % (36.0-46.0); Immature Grans % 0.5; Lymphocytes % 29.2; MCH 30.5 pg (27.0-33.0); MCHC 31.9 % (32.0-36.0); MCV 95.7 fL (80-95); MPV 10.1 fL (8.0-11.0); Monocytes % 7.4; Neutrophils % 60.8; Nucleated RBC 0 %; Platelet Count 211 10^3/uL (130-400); RBC 3.93 10^6/uL (3.93-5.22); RDW 12.2 % (11.7-14.6); RDW-SD 43.1 fL; WBC 6.65 10^3/uL (4.4-10.8)
[2020-04-13 08:25] LABS: Lactate 1.3 mmol/L (0.6-1.4)
[2020-04-13 08:29] LABS: Absolute Neutrophil Count 4.04 10^3/uL (1.2-6.7)
[2020-04-13 08:38] LABS: Ammonia 22 umol/L (11-32)
[2020-04-13 08:40] LABS: Anion Gap 12.4 mmol/L (3-11); BUN 9 mg/dL (7-18); CO2 18.6 mmol/L (21.0-32.0); CREATININE 0.66 mg/dL (0.55-1.02); Calcium 7.8 mg/dL (8.5-10.1); Chloride 114 mmol/L (98-107); Creatine Kinase 121 U/L (26-192); Glucose 88 mg/dL (74-106); Magnesium 1.9 mg/dL (1.8-2.4); Potassium 3.6 mmol/L (3.5-5.1); Sodium 145 mmol/L (136-145)
--- NOTE | 2020-04-13 10:08 | W.PM.PROGNOT ---
Date of Service Date of service: 04/13/20 Time of Service: 10:09 Assessment and Plan Assessment and plan (1) Toxic metabolic encephalopathy: Status: Acute Assessment and plan: In setting of alcohol intoxication. Required restraints, both chemical and physical, upon her presentation and overnight. Quite cooperative, though still somnolent now. Continue to observe in the ICU. The patient does not admit to overdosing on any of her medications or taking any other substances other than alcohol. Will obtain an EKG to ensure no changes. (2) Intoxication: Status: Acute Assessment and plan: As above. Mental health is consulted. (3) Open wound of right great toe: Status: Acute Assessment and plan: Does not clearly appear infected. Will consult podiatry. (4) Alcohol abuse: Status: Chronic Assessment and plan: Monitor for withdrawal. Ordered to have IV thiamine and PO vitamins. Monitor on CIWA. (5) DVT prophylaxis: Status: Acute Assessment and plan: Not required in a 34 year old female. (6) Discharge planning issues: Status: Acute Assessment and plan: Full code. Keep in the ICU until mental status 100% cleared and the patient is fully awake. Subjective Subjective Interval history since last seen: Whit (as she likes to be called) is cooperative and out of restraints this morning. She is somnolent but arousable. She denies dizziness, chest pain, shortness of breath, nausea, headache. She states she remembers yesterday and how she got here. She denies ingesting any substances, overdosing or taking drugs. She has not yet eaten anything but feels like she could eat. Nursing states she has been too somnolent to eat so far today. Afebrile, slightly tachycardic (low 100s) when awake, HR down to 80's when asleep. Not requiring oxygen. Exam Narrative Exam Narrative: General: Somnolent, arousable female, who provides short answers, A&Ox3 HEENT: EOMI, MMM Heart: RRR, no m/r/g Lungs: CTAB Abdomen: soft, nontender, nondistneded Extremities: no e/c/c BLE's; R great toe with a small laceration which is not actively bleeding but does have dry blood on it and around it. Dry skin on both soles. Objective Last Vital Signs Temp 36.6 C 10/13/20 08:00 Pulse 94 H 04/13/20 08:00 Resp 16 04/13/20 08:00 BP 110/73 04/13/20 08:00 Pulse Ox 99 04/13/20 07:37 Laboratory Results - last 24 hr 04/12/20 04/12/20 04/12/20 20:55 20:55 20:55 WBC 9.59 RBC 4.91 Hgb 15.0 Hct 46.4 H MCV 94.5 MCH 30.5 MCHC 32.3 RDW 12.1 Plt Count 318 MPV 10.1 Immature Gran % 0.7 Neutrophils % 67.2 Lymphocytes % 25.8 Monocytes % 4.6 Eosinophils % 1.3 Basophils % 0.4 Nucleated RBC % 0 Absolute Neutrophils 6.45 Absolute Lymphocytes 2.47 Absolute Monocytes 0.44 Absolute Eosinophils 0.12 Absolute Basophils 0.04 VBG Lactate Sodium 142 Potassium 3.5 Chloride 107 Carbon Dioxide 21.7 Anion Gap 13.3 H BUN 10 Creatinine 0.83 Estimated GFR/1.73 m2 >= 60.00 Glucose 110 H Calcium 8.7 Magnesium 2.6 H Total Bilirubin 0.2 AST 20 ALT 25 Alkaline Phosphatase 67 Ammonia Creatine Kinase Troponin I < 0.05 Total Protein 8.3 H Albumin 4.3 TSH 1.27 Salicylates Urine Opiates Screen Urine Methadone Screen Acetaminophen Ur Barbiturates Screen Ur Tricyclics Screen Ur Amphetamines Screen U Benzodiazepines Scrn Urine Cocaine Screen Ur THC Screen Ethyl Alcohol 263.3 04/12/20 04/12/20 04/13/20 20:55 21:30 08:13 WBC RBC Hgb Hct MCV MCH MCHC RDW Plt Count MPV Immature Gran % Neutrophils % Lymphocytes % Monocytes % Eosinophils % Basophils % Nucleated RBC % Absolute Neutrophils Absolute Lymphocytes Absolute Monocytes Absolute Eosinophils Absolute Basophils VBG Lactate Sodium 145 Potassium 3.6 Chloride 114 H Carbon Dioxide 18.6 L Anion Gap 12.4 H BUN 9 Creatinine 0.66 Estimated GFR/1.73 m2 >= 60.00 Glucose 88 Calcium 7.8 L Magnesium 1.9 Total Bilirubin AST ALT Alkaline Phosphatase Ammonia Creatine Kinase 121 Troponin I Total Protein Albumin TSH Salicylates < 2.8 Urine Opiates Screen Negative Urine Methadone Screen Negative Acetaminophen < 2 Ur Barbiturates Screen Negative Ur Tricyclics Screen Negative Ur Amphetamines Screen Negative U Benzodiazepines Scrn Negative Urine Cocaine Screen Negative Ur THC Screen Negative Ethyl Alcohol 04/13/20 04/13/20 04/13/20 08:13 08:13 08:13 WBC 6.65 D RBC 3.93 Hgb 12.0 D Hct 37.6 MCV 95.7 H MCH 30.5 MCHC 31.9 L RDW 12.2 Plt Count 211 D MPV 10.1 Immature Gran % 0.5 Neutrophils % 60.8 Lymphocytes % 29.2 Monocytes % 7.4 Eosinophils % 1.8 Basophils % 0.3 Nucleated RBC % 0 Absolute Neutrophils 4.04 Absolute Lymphocytes 1.94 Absolute Monocytes 0.49 Absolute Eosinophils 0.12 Absolute Basophils 0.02 VBG Lactate 1.3 Sodium Potassium Chloride Carbon Dioxide Anion Gap BUN Creatinine Estimated GFR/1.73 m2 Glucose Calcium Magnesium Total Bilirubin AST ALT Alkaline Phosphatase Ammonia 22 Creatine Kinase Troponin I Total Protein Albumin TSH Salicylates Urine Opiates Screen Urine Methadone Screen Acetaminophen Ur Barbiturates Screen Ur Tricyclics Screen Ur Amphetamines Screen U Benzodiazepines Scrn Urine Cocaine Screen Ur THC Screen Ethyl Alcohol
[2020-04-13] MEDS: Thiamine 100 MG TAB PO (10:11)
[2020-04-13] MEDS: Multivitamin TAB 1 TAB PO (10:11)
[2020-04-13] MEDS: Folic Acid 1 MG TAB PO (10:11)
--- NOTE | 2020-04-13 10:15 | RT.EKG_ITS ---
APPROVED REPORT Exam: Resting ECG Patient Location: I HR:90 bpm ECG Measurements Heart Rate 90 AXIS WI 146 P 35 QRSd 94 QRS 58 QT 356 T 52 QTc 436 Conclusion Sinus rhythm...normal P axis, V-rate 60- 99
--- NOTE | 2020-04-13 10:48 | PHA.REVIEW ---
Pharmacy Admission Review - Admission Clinical Review (Last Reviewed 04/12/20 @ 23:32 by Pieter Marroquin MD) Discharge planning issues (Acute) DVT prophylaxis (Acute) Open wound of right great toe (Acute) Toxic metabolic encephalopathy (Acute) Intoxication (Acute) buspirone [From BuSpar] Allergy (Mild, Verified 04/12/20 20:40) Height 5 ft 1 in Weight 78.3 kg ALTERED MENTAL STATUS, Encephalopathy from alcohol intoxication - Comments Comments/Follow Ups: Technically not an ICU patient, expect transfer or discharge. Follow CIWA and restart of home meds. Toxicology screen was negative for Benzo's even though Lorazepam is on her home med list. Alcohol level was 263 on admission - Renal Dosing Renal Dosing: BUN 9 mg/dL (7-18) 04/13/20 08:13 Creatinine 0.66 mg/dL (0.55-1.02) 04/13/20 08:13 Medications needing adjustments: Reviewed (CrCl~73ml/min-no med adjustments) - Anticoagulation Anticoagulation: Hgb 12.0 g/dL (11.2-15.7) D 04/13/20 08:13 Hct 37.6 % (36.0-46.0) 04/13/20 08:13 Plt Count 211 10^3/uL (130-400) D 04/13/20 08:13 Creatinine 0.66 mg/dL (0.55-1.02) 04/13/20 08:13 DVT Prohphylaxis: N/A (none at this time, repositioning, patient combative and restrained at the moment, young age) - Relevant Labs Sodium 145 mmol/L (136-145) 04/13/20 08:13 Potassium 3.6 mmol/L (3.5-5.1) 04/13/20 08:13 Chloride 114 mmol/L (98-107) H 04/13/20 08:13 Magnesium 1.9 mg/dL (1.8-2.4) 04/13/20 08:13 - DM Control DM Control: Glucose 88 mg/dL (74-106) 04/13/20 08:13 Insulin Dosing: N/A - Heart Failure/LA Heart Failure/LA: Troponin I < 0.05 ng/mL (<0.06) 04/12/20 20:55 EF%, BISI's, B-Blockers, Diuretics: N/A - BP Control BP Control: Blood Pressure [Right Arm] 109/51 Blood Pressure [Right Arm] 104/62 Blood Pressure [Right Arm] 108/68 Blood Pressure 110/73 Blood Pressure 109/51 Blood Pressure 109/51 Blood Pressure 108/68 Blood Pressure 108/68 Blood Pressure 109/65 Blood Pressure 109/65 Blood Pressure 104/62 Blood Pressure 104/62 Blood Pressure 132/88 Blood Pressure 104/60 Blood Pressure 105/59 Blood Pressure 132/88 Blood Pressure 99/55 Blood Pressure 104/60 Blood Pressure 105/59 If elevated: N/A - Qtc Review If Elevated: Reviewed (QTC 466 (Citalopram is a home med)) - Home Meds Home Med List reviewed: Reviewed Relevent Home Meds Not ordered & why?: Lyrica, Topiramate, Citalopram-acute alcohol withdrawl so holding for now - Current meds Current Medication Order Review: Reviewed (oral Thiamine and a bolus dose of IV Thiamine 100mg x1, Lorazepam for CIWA, oral meds)
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
[2020-04-13] MEDS: THIAMINE 100 MG in Normal Saline 100 ML 200 MG IVPB (11:18)
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
[2020-04-14] VITALS (8 sets, daily range): BP systolic 101–134; BP diastolic 60–92; PULSE 69–103; RESP 13–18; TEMP 36.6–36.8; O2SAT 99–100
[2020-04-14 06:26] LABS: Basophils % 0.3; Eosinophils % 2.2; HCT 35.8 % (36.0-46.0); HGB 11.7 g/dL (11.2-15.7); Immature Grans % 0.6; Lymphocytes % 30.3; MCHC 32.7 % (32.0-36.0); MCV 94.7 fL (80-95); MPV 10.1 fL (8.0-11.0); Monocytes % 7.2; Neutrophils % 59.4; Nucleated RBC 0 %; Platelet Count 179 10^3/uL (130-400); RBC 3.78 10^6/uL (3.93-5.22); RDW 11.9 % (11.7-14.6); RDW-SD 41.2 fL
[2020-04-14 06:27] LABS: Abs Immature Grans 0.04 10^3/uL (0.0-0.06); Absolute Basophil Count 0.02 10^3/uL (0.0-0.2); Absolute Eosinophil Count 0.15 10^3/uL (0.0-0.7); Absolute Lymphocyte Count 2.06 10^3/uL (1.2-3.4); Absolute Monocyte Count 0.49 10^3/uL (0.1-0.8); Absolute Neutrophil Count 4.04 10^3/uL (1.2-6.7)
[2020-04-14 07:08] LABS: Anion Gap 10.3 mmol/L (3-11); BUN 10 mg/dL (7-18); CO2 21.7 mmol/L (21.0-32.0); CREATININE 0.61 mg/dL (0.55-1.02); Calcium 8.1 mg/dL (8.5-10.1); Chloride 111 mmol/L (98-107); Glucose 94 mg/dL (74-106); Magnesium 1.7 mg/dL (1.8-2.4); Potassium 3.7 mmol/L (3.5-5.1); Sodium 143 mmol/L (136-145); Vitamin B12 307 pg/mL (193-986)
--- NOTE | 2020-04-14 08:09 | W.PM.PROGNOT ---
Subjective Subjective Interval history since last seen: Smiling. Tolerating PO. Slept well. Cleared by mental health. Tachy when gets up to void. Not withdrawing. Objective Last Vital Signs Temp 36.6 C 04/14/20 03:19 Pulse 69 04/14/20 05:02 Resp 18 04/14/20 03:19 BP 101/60 04/14/20 05:02 Pulse Ox 99 04/14/20 03:19 Laboratory Results - last 24 hr 04/13/20 04/13/20 04/13/20 08:13 08:13 08:13 WBC 6.65 D RBC 3.93 Hgb 12.0 D Hct 37.6 MCV 95.7 H MCH 30.5 MCHC 31.9 L RDW 12.2 Plt Count 211 D MPV 10.1 Immature Gran % 0.5 Neutrophils % 60.8 Lymphocytes % 29.2 Monocytes % 7.4 Eosinophils % 1.8 Basophils % 0.3 Nucleated RBC % 0 Absolute Neutrophils 4.04 Absolute Lymphocytes 1.94 Absolute Monocytes 0.49 Absolute Eosinophils 0.12 Absolute Basophils 0.02 VBG Lactate 1.3 Sodium 145 Potassium 3.6 Chloride 114 H Carbon Dioxide 18.6 L Anion Gap 12.4 H BUN 9 Creatinine 0.66 Estimated GFR/1.73 m2 >= 60.00 Glucose 88 Calcium 7.8 L Magnesium 1.9 Ammonia Creatine Kinase 121 Vitamin B12 04/13/20 04/14/20 04/14/20 08:13 06:15 06:15 WBC 6.80 RBC 3.78 L Hgb 11.7 Hct 35.8 L MCV 94.7 MCH 31.0 MCHC 32.7 RDW 11.9 Plt Count 179 MPV 10.1 Immature Gran % 0.6 Neutrophils % 59.4 Lymphocytes % 30.3 Monocytes % 7.2 Eosinophils % 2.2 Basophils % 0.3 Nucleated RBC % 0 Absolute Neutrophils 4.04 Absolute Lymphocytes 2.06 Absolute Monocytes 0.49 Absolute Eosinophils 0.15 Absolute Basophils 0.02 VBG Lactate Sodium 143 Potassium 3.7 Chloride 111 H Carbon Dioxide 21.7 Anion Gap 10.3 BUN 10 Creatinine 0.61 Estimated GFR/1.73 m2 >= 60.00 Glucose 94 Calcium 8.1 L Magnesium 1.7 L Ammonia 22 Creatine Kinase Vitamin B12 307
[2020-04-14 08:34] LABS: COVID-19 RT-PCR UVMMC Result Negative (Negative)
[2020-04-14] MEDS: Folic Acid 1 MG TAB PO (08:34)
[2020-04-14] MEDS: Multivitamin TAB 1 TAB PO (08:34)
[2020-04-14] MEDS: Thiamine 100 MG TAB PO (08:35)
[2020-04-14] MEDS: MAGNESIUM SULFATE 2 GM/50 ML BAG IVPB (08:35)
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
--- NOTE | 2020-04-14 15:12 | CMDISCH_ITS ---
- If Service Date Differs Date of service: 04/14/20 Time of Service: 15:13 LACE Index Scoring Tool - Questions: Length of Stay (in days): 1 Acuity (Admit via E.D.?): Yes E.D. Visits: 1 - Answers: Total Score: 5 Risk of Readmission: Low Risk Care Management Discharge Reason for Hospitalization: Altered mental status Discharge Plan: Whit will be discharged with no new services. She will follow up with her community providers and transport with her significant other via [employer] vehicle. Patient/Family Education Needs: Discharge plan, follow up, limitations, Ask Me Three
== END 2020-04-14 11:30 | disposition home or self-care (01) | DRG 896 ==
LOC: ER 23:46 → ICU 04-13 01:52
PROVIDERS: Internal Medicine; Admitting Provider General Practice; Emergency Provider Physician Assistant; PCP Nurse Practitioner Family; Visit Provider General Practice
DX: F10.121 Alcohol abuse with intoxication delirium (principal); G92 Toxic encephalopathy; F41.8 Other specified anxiety disorders; F51.05 Insomnia due to other mental disorder; M54.5 Low back pain; G44.89 Other headache syndrome; Z78.1 Physical restraint status; L85.3 Xerosis cutis; R23.4 Changes in skin texture
CPT/HCPCS: 36415; 80048; 80053; 80307; 81025; 82550; 93005; 96361; 96374; 96375; 96376; 99222; 99232; 99239; 99285; U0003; 80320; 80329; 82140; 82607; 83605; 83735; 84443; 84484; 85025; 93010; 99219; G0378; J1200; J1630; J2060

== ENCOUNTER 2020-04-19 15:11 | Emergency (ER) | payer MEDICAID, SELFPAY ==
[2020-04-19] VITALS (30 sets, daily range): BP systolic 73–144; BP diastolic 39–96; PULSE 86–130; RESP 0–24; TEMP 36.9; O2SAT 98
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
--- NOTE | 2020-04-19 15:30 | RT.EKG_ITS ---
APPROVED REPORT Exam: Resting ECG Patient Location: E HR:104 bpm ECG Measurements Heart Rate 104 AXIS MO 140 P 82 QRSd 85 QRS 50 QT 361 T 58 QTc 474 Conclusion Sinus tachycardia...rate> 99 Probable left atrial enlargement...P >50mS, <-0.10mV V1 Nonspecific T abnrm, anterolateral leads...T <-0.10mV, I aVL V2-V6
[2020-04-19] MEDS: LORazepam 2 MG/ML VIAL 1 MG IVP (15:43)
[2020-04-19] MEDS: Normal Saline 1,000 ML 2000 ML IV (15:44)
[2020-04-19 15:53] LABS: Abs Immature Grans 0.09 10^3/uL (0.0-0.06); Absolute Basophil Count 0.03 10^3/uL (0.0-0.2); Absolute Eosinophil Count 0.04 10^3/uL (0.0-0.7); Absolute Lymphocyte Count 2.52 10^3/uL (1.2-3.4); Absolute Monocyte Count 0.45 10^3/uL (0.1-0.8); Absolute Neutrophil Count 6.17 10^3/uL (1.2-6.7); Basophils % 0.3; Eosinophils % 0.4; HCT 45.7 % (36.0-46.0); HGB 14.9 g/dL (11.2-15.7); Lymphocytes % 27.1; MCH 30.6 pg (27.0-33.0); MCHC 32.6 % (32.0-36.0); MCV 93.8 fL (80-95); MPV 10.2 fL (8.0-11.0); Monocytes % 4.8; Neutrophils % 66.4; Nucleated RBC 0 %; RBC 4.87 10^6/uL (3.93-5.22); RDW-SD 41.3 fL
[2020-04-19 15:55] LABS: Platelet Count 350 10^3/uL (130-400)
[2020-04-19 16:13] LABS: ALT 22 U/L (14-59); AST 16 U/L (15-37); Albumin 4.4 g/dL (3.4-5.0); Alkaline Phosphatase 71 U/L (46-116); Anion Gap 11.5 mmol/L (3-11); BUN 7 mg/dL (7-18); Bilirubin, Total 0.2 mg/dL (0.2-1.0); CO2 23.5 mmol/L (21.0-32.0); CREATININE 0.82 mg/dL (0.55-1.02); Calcium 8.9 mg/dL (8.5-10.1); Chloride 110 mmol/L (98-107); ETHANOL BLOOD 277.6 mg/dL (<3); Glucose 100 mg/dL (74-106); Potassium 3.9 mmol/L (3.5-5.1); Sodium 145 mmol/L (136-145); TSH 1.25 uIU/mL (0.36-3.74); Total Protein 8.4 g/dL (6.4-8.2)
[2020-04-19 16:20] LABS: Bilirubin Negative (Negative); Blood Trace-intact (Negative); Clarity Clear (Clear); Glucose Negative (Negative); Ketones Negative (Negative); Leukocyte Esterase Negative (Negative); Nitrite Negative (Negative); Specific Gravity <= 1.005 (1.005-1.025); Urobilinogen 0.2 EU/dL (Up TO 0.2); pH 5.5 (5-8)
[2020-04-19 16:31] LABS: Bacteria Negative HPF (Negative); C & S Indicated? No; Casts Negative LPF (Negative); Crystals Negative HPF (Negative); Epithelial Cells Few HPF (Negative); Mucus Negative (Negative); RBC 0-2 HPF (0-2); WBC 0-2 HPF (0-5)
[2020-04-19 16:59] LABS: *AMPHETAMINES SCREEN URINE Negative (Negative); *BARBITURATES SCREEN URINE Negative (Negative); *BENZODIAZEPINES SCREEN URINE Negative (Negative); Cannabinoids THC Negative (Negative); Cocaine Screen,Urine Negative (Negative); METHADONE URINE SCREEN Negative (Negative); OPIATES URINE SCREEN Negative (Negative)
[2020-04-19 17:02] LABS: Salicylate < 2.8 mg/dL (2.8-20.0)
[2020-04-19 17:02] LABS: Tricyclic Antidepressants Negative (Negative)
[2020-04-19 17:03] LABS: Acetaminophen < 2 ug/mL (10-30)
== END 2020-04-19 19:30 | disposition other institution (70) ==
PROVIDERS: Emergency Provider Emergency Medicine; PCP Nurse Practitioner Family
DX: F10.120 Alcohol abuse with intoxication, uncomplicated (principal); Y90.8 Blood alcohol level of 240 mg/100 ml or more; R47.81 Slurred speech; E86.0 Dehydration; F41.8 Other specified anxiety disorders
CPT/HCPCS: 36415; 80053; 80307; 81025; 93005; 96361; 96374; 99285; 80320; 80329; 81003; 81015; 84443; 85025; 93010; 99284; J2060

== ENCOUNTER 2020-07-22 18:45 | Outpatient (REF) | payer MEDICAID, SELFPAY ==
[2020-07-26 14:26] LABS: Chlamydia Result Negative (Negative); GC Result Negative (Negative)
== END 2020-07-22 19:05 ==
LOC: NCHCN 18:45
PROVIDERS: PCP Nurse Practitioner Family; Visit Provider Nurse Practitioner Family
DX: N89.8 Other specified noninflammatory disorders of vagina (principal)
CPT/HCPCS: 87491; 87591; 87480; 87510; 87660

== ENCOUNTER 2020-07-23 16:16 | Emergency (ER) | payer MEDICAID, SELFPAY ==
[2020-07-23 16:21] VITALS: BP 146/97; PULSE 120; RESP 18; TEMP 36.5; O2SAT 98
[2020-07-23 16:29] VITALS: RESP 18
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
== END 2020-07-23 17:05 | disposition home or self-care (01) ==
PROVIDERS: Emergency Provider Physician Assistant; PCP Nurse Practitioner Family
DX: B37.0 Candidal stomatitis (principal)
CPT/HCPCS: 99283

== ENCOUNTER 2020-08-06 18:03 | Emergency (ER) | payer MEDICAID, SELFPAY ==
[2020-08-06 18:06] VITALS: BP 128/108; PULSE 115; RESP 16; TEMP 36.8; O2SAT 98
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
[2020-08-06] MEDS: Lidocaine/Epinephri/Tetracaine Topical Gel 3 ML TP (18:45)
[2020-08-06] MEDS: oxyCODONE 5 mg/Acetaminophen 325 mg TAB 1 TAB PO (19:15)
[2020-08-06] MEDS: Lidocaine 2% Viscous 15 ML CUP (20:35)
== END 2020-08-06 20:40 | disposition home or self-care (01) ==
PROVIDERS: Emergency Provider Registered Nurse Emergency; PCP Nurse Practitioner Family
DX: K64.5 Perianal venous thrombosis (principal)
CPT/HCPCS: 46083

== ENCOUNTER 2020-10-01 15:31 | Emergency (ER) | payer MEDICAID, SELFPAY ==
[2020-10-01 15:32] VITALS: BP 124/102; PULSE 102; RESP 14; TEMP 36.6; O2SAT 99
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
[2020-10-01] MEDS: Ketorolac 60 MG/2 ML VIAL IM (16:24)
[2020-10-01] MEDS: Lidocaine 5% Patch 1 PATCH TP (16:24)
== END 2020-10-01 16:55 | disposition home or self-care (01) ==
LOC: ER 16:39
PROVIDERS: Emergency Provider Physician Assistant; PCP Nurse Practitioner Family
DX: S29.012A Strain of muscle and tendon of back wall of thorax, initial encounter (principal); X58.XXXA Exposure to other specified factors, initial encounter; M54.89 Other dorsalgia; G89.29 Other chronic pain
CPT/HCPCS: 81025; 96372; 99284; 99283; J1885

== ENCOUNTER 2020-10-06 20:23 | Emergency (ER) | payer MEDICAID, SELFPAY ==
[2020-10-06 20:20] VITALS: BP 124/100; PULSE 130; RESP 24; TEMP 36.7; O2SAT 97
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
[2020-10-06] MEDS: Lidocaine 5% Patch 2 PATCH TP (22:16)
[2020-10-06] MEDS: Ketorolac 60 MG/2 ML VIAL IM (22:16)
[2020-10-06 22:40] VITALS: PULSE 103; O2SAT 95
[2020-10-06 22:43] VITALS: BP 110/75
[2020-10-06] MEDS: traMADol 50 MG TAB PO (22:55)
[2020-10-06 23:37] VITALS: BP 110/75; PULSE 103; RESP 24; TEMP 36.7; O2SAT 95
== END 2020-10-07 00:04 | disposition home or self-care (01) ==
PROVIDERS: Emergency Provider Physician Assistant; PCP Nurse Practitioner Family
DX: S29.012A Strain of muscle and tendon of back wall of thorax, initial encounter (principal); X58.XXXA Exposure to other specified factors, initial encounter
CPT/HCPCS: 96372; 99283; J1885

== ENCOUNTER 2020-10-11 14:48 | Outpatient (REF) | payer MEDICAID, SELFPAY ==
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
[2020-10-12 12:07] LABS: COVID-19 RT-PCR UVMMC Result Negative (Negative)
== END 2020-10-11 14:49 | disposition home or self-care (01) ==
LOC: NCHCN 14:48
PROVIDERS: PCP Nurse Practitioner Family; Visit Provider Nurse Practitioner Family
DX: Z20.822 Contact with and (suspected) exposure to COVID-19 (principal)
CPT/HCPCS: U0003

== ENCOUNTER 2020-10-18 02:43 | Outpatient (CLI) | payer MEDICAID, SELFPAY ==
[2020-10-18 11:47] LABS: Source Nasal/Nares
[2020-10-18 18:19] LABS: COVID-19 PCR Negative (Negative)
== END 2020-10-18 02:44 | disposition home or self-care (01) ==
LOC: LBO 02:43
PROVIDERS: PCP Nurse Practitioner Family; Visit Provider Surgery
DX: Z20.822 Contact with and (suspected) exposure to COVID-19 (principal); Z01.818 Encounter for other preprocedural examination
CPT/HCPCS: 87635

== ENCOUNTER 2020-10-20 07:10 | Day surgery (SDC) | payer MEDICAID, SELFPAY ==
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
--- NOTE | 2020-10-20 06:47 | ROE_ITS ---
Date of service: 10/20/20 Time of Service: 09:30 Operative Note Operative Note DATE OF PROCEDURE: 10/20/20 PRE-OP DIAGNOSIS: Hemorrhoids POST-OP DIAGNOSIS: other (Internal hemorrhoids, external hemorrhoids, fissure and external anal skin tag) PROCEDURE: Exam under anesthesia internal hemorrhoid banding external hemorrhoidectomy fisurrectomy SURGEON: Jayashree Holland ANESTHESIA TYPE: Local By Surgeon and MAC Refer to Anesthesia Record COMPLICATIONS: None Patient was transported to: PACU Patient's condition: stable Indications: Antonio is a pleasant 34-year-old female who is here today to disc uss an exam under anesthesia with internal and external hemorrhoidectomy. She has been having trouble with hemorrhoids for quite some time. She had recently 2 thrombosed hemorrhoids which had to be lanced. She is feeling better from that. She has an hemorrhoidal skin tag as well that bothers her quite a bit. We discussed exam under anesthesia with internal and external hemorrhoidectomy. Again reviewed with the patient that this is one of the most painful surgeries that I do and she will be in quite a bit of pain for at least 2 weeks. We discussed pain control with Exparel injection during surgery. Postoperatively she will have Tylenol, ibuprofen, oxycodone, lidocaine ointment to help with the pain. Sitz bath's are extremely important as they are quite helpful with pain. For anesthesia I discussed spinal with a little bit of sedation. Risks, benefits, complications were reviewed with the patient. Complications include but are not limited to bleeding, infection which can be quite severe, injury to the sphincter, recurrence of the hemorrhoids. Questions were entertained and answered to her satisfaction and she wished to proceed. COVID- 19 testing explained to the patient. Reason for test reviewed. Quarantine per state requirements reviewed with patient. Patient understands and agrees to testing. Proceed with exam under anesthesia with internal and external hemorrhoidectomy under spinal anesthesia Findings: A few Grade 2 internal hemorrhoids External hemorrhoidal skin tag chronic fissure External hemorrhoids Procedure Description: After informed consent was obtained the patient was taken to the procedure room and placed in sitting position. Monitors were applied and a time out was done. The patients name, date of , procedure, allergies to medications and metal in their body was reviewed. Anesthesia then proceded with a saddle block. Once the patient felt some numbness in her buttocks she was placed in a prone position. Next tape was applied to either side of her rectum and pulled outwards pulling her buttocks apart. Her rectum and perirectal area was then prepped with iodine and draped in a standard surgical fashion. At this point an external exam was done. There was a hemorrhoidal skin tag at the 12-o'clock position. A rectal retractor was placed into the rectum. A fissure was identified at the 6 o'clock position. On either side of the fissure there were Grade 2 external hemorrhoids. The 2 internal hemorrhoids were banded in a standard fashion without difficulty. The fissure was excised and sutured. The Grade 2 external hemorrhoids were removed using a ligasure and sent for pathology. Once the hemorrhoids were removed the skin tag was removed with the ligasure. Lidocaine jelly was then applied to the rectal mucosa for post op pain controll and the area was circumferentially injected with exparel mixed with 0.25% Bipivocaine. An ABD was applied and mesh panties were placed on the patient. The patient tolerated the procedure well and there were no immediate complications. The patient was woken up and placed back on the [facility] and taken to [facility]. Follow up: 2 weeks
--- NOTE | 2020-10-20 06:50 | W.PM.DSUDISC ---
Discharge Plan Disposition Patient Disposition: HOME Condition: Good Discharge Details Reason For Visit: Hemorrhoidectomy Attending Provider: Jayashree Holland Primary Care Provider: Lelia Mas Home Meds and New Rx's Prescriptions: New oxycodone 5 mg tablet 5 mg PO Q6H MDD 4 tabs PRN (Reason: pain) Qty: 14 RF: 0 Continued acetaminophen [Tylenol] 325 mg capsule 650 mg PO Q6H PRNRF: 0 topiramate 100 mg tablet 100 mg PO BID RF: 0 lorazepam 0.5 mg tablet 0.5 mg PO DAILY PRNRF: 0 hydroxyzine HCl 25 mg tablet 25 mg PO BID PRNRF: 0 duloxetine [Cymbalta] 20 mg capsule,delayed release(DR/EC) 20 mg PO .AM RF: 0 Emgality Pen 120 mg/mL pen injector 240 mg subcut ONCE Qty: 2 RF: 0 prochlorperazine maleate 5 mg tablet See Rx Instructions PO TID PRN (Reason: headaches) Qty: 30 RF: 2 omeprazole 20 mg capsule,delayed release(DR/EC) 20 mg PO DAILY RF: 0 prazosin 1 mg capsule 1 mg PO QHS RF: 0 norethindrone (contraceptive) [Maggie] 0.35 mg tablet 0.35 mg PO DAILY RF: 0 clonazepam [Klonopin] 0.5 mg tablet 0.5 mg PO DAILY RF: 0 duloxetine [Cymbalta] 20 mg capsule,delayed release(DR/EC) 60 mg PO DAILY RF: 0 bupropion HCl [Wellbutrin XL] 300 mg tablet extended release 24 hr 300 mg PO QAM RF: 0 hydrocortisone 2.5 % cream with perineal applicator 1 applic IA QD-BID PRNRF: 0 lidocaine 5 % cream 1 applic topical QID RF: 0 docusate sodium [Colace] 100 mg capsule 100 mg PO TID RF: 0 gabapentin 300 mg capsule 300 mg PO DIRECTED 30 Days Qty: 102 RF: 0 multivitamin [Multiple Vitamins] Tablet 1 tab PO DAILY Qty: 30 RF: 0 thiamine mononitrate (vit B1) [Vitamin B-1 (mononitrate)] 100 mg Tablet 100 mg PO DAILY Qty: 30 RF: 0 cyanocobalamin (vitamin B-12) 1,000 mcg tablet 1,000 mcg PO DAILY Qty: 30 RF: 0 Lac-Hydrin Five 5 % lotion 1 applic topical BID Qty: 226 RF: 0 methocarbamol 500 mg tablet 500 mg PO Q6H PRN (Reason: muscle spasm) Qty: 14 RF: 0 naproxen [Naprosyn] 500 mg tablet 500 mg PO BID PRN (Reason: pain) Qty: 14 RF: 0 lidocaine [Lidoderm] 5 % adhesive patch,medicated 1 patch TP DAILY PRN (Reason: pain) Qty: 15 RF: 0 Discharge Instructions Instructions: Hemorrhoidectomy (DC), Hemorrhoids (DC) Additional Instructions: Activity at Home after surgery: 1. Make sure you walk outside at least 4 times per day 2. You should be able to climb a flight of stairs 3. No driving while in pain or taking pain medications 4. No strenuous activity or heavy lifting for 2 weeks Diet, Nutrition, & wound healin. Avoid alcohol until after you are recovered from your surgery 2. Make sure to eat plenty of lean protein (meat, fish, eggs, cottage cheese, beans) 3. Eat a variety of fruits and vegetables. Eat plenty of high fiber foods to avoid constipation. 4. Drink plenty of liquids to stay hydrated and avoid constipation Pain Medications: 1. Tylenol 650mg every 6 hours as needed 2. If a narcotic has been prescribed take as directed only for breakthrough pain Medications: Use the lidocaine ointment every 4 hours as needed DO NOT use the hydrocortisone ointment For Constipation: 1. Take Milk of Magnesia or MiraLax as needed for constipation Other: 1. You may shower daily. Do not scrub the incisions 2. Sitz baths q2 hours as needed for pain 3. Bleeding is expected for the next week Wound Care: 1. Keep the incisions clean and dry Please call our office if you develop: 1. Fevers >101.5 2. Nausea or Vomiting 3. Worsening pain 4. Redness and thick discharge from the wounds If after hours please call the Hospital at and ask to speak to the on-call surgeon Referrals: Jayashree Holland MD [ [facility] STAFF PHYSICIAN] - 10/26/20 10:00 am Activity:: Activity as Tolerated Diet:: High Fiber diet Discharge Orders Discharge Orders: Discharge Order (Routine); Ordered 10/20/20 Ordered By: Jayashree Holland DS: Diagnosis Discharge Diagnosis (1) Hemorrhoids: Status: Inactive
[2020-10-20 07:15] VITALS: BP 145/106; PULSE 100; RESP 20; TEMP 37.2; O2SAT 96
[2020-10-20] MEDS: Normal Saline 1,000 ML 80 ML IV (07:59)
[2020-10-20] MEDS: metroNIDAZOLE 500 MG/100 ML BAG 100 MG IVPB (07:59)
--- NOTE | 2020-10-20 09:10 | HEM_PTH ---
PATIENT: Antonio Huizar LOC: [facility] U#:[id number] AGE/SX: 35/F ROOM: RE10/20/[address]: Jayashree Holland MD : [id number] BED: DIS: 10/20/2020 SPEC #: [id number] RECD: 10/20/20 12:41 STATUS: LURDES REQ #: [id number] STEPHANIE: 10/20/20 09:[address]: Jayashree Holland DEPT: Surgical Specimen RECD BY: Ebony Christianson ENTERED: 10/20/20 12:43 SP TYPE: Hem OTHR DR: Lelia Mas Tissues: 1 - HEMORRHOIDS Procedures: GROSS AND MICRO LEVEL 3 Comments: [id number]
[2020-10-20] MEDS: Bupivacaine 0.25% Pres-Free 30 ML VIAL (09:20)
[2020-10-20] MEDS: Lidocaine 2% Jelly 11 ML SYR (09:40)
[2020-10-20 10:15] VITALS: BP 117/75; PULSE 96; RESP 18; TEMP 37; O2SAT 99
== END 2020-10-20 11:50 | disposition home or self-care (01) ==
LOC: SUR 07:11
PROVIDERS: PCP Nurse Practitioner Family; Visit Provider Surgery
PROC: (CPT 46255; principal; 2020-10-20 08:15)
PROC: (CPT 46255; 2020-10-20 08:15)
DX: K64.1 Second degree hemorrhoids (principal); K64.8 Other hemorrhoids; K64.4 Residual hemorrhoidal skin tags; K60.1 Chronic anal fissure
CPT/HCPCS: 46255; 46200; 81025; NC; 88304; J1885; J2250; J2405

== ENCOUNTER 2020-10-26 14:46 | Outpatient (CLI) | payer MEDICAID, SELFPAY ==
--- NOTE | 2020-10-26 14:30 | DI.RAD_ITS ---
EXAM: XR ELBOW LT COMPLETE CLINICAL HISTORY: continued pain. TECHNIQUE: 2D digital imaging was performed. COMPARISON: CR XR ELBOW LT COMPLETE from 04/30/2019 FINDINGS: BONES: No acute fracture is present. No bony destructive lesion is seen. JOINTS: The elbow is normally aligned. No joint effusion is seen. SOFT TISSUE: Normal. IMPRESSION: Unremarkable radiographs of the left elbow. DATA REPOSITORY: RADIATION DOSE DELIVERED:
== END 2020-10-26 14:47 | disposition home or self-care (01) ==
LOC: DIORS 14:46
PROVIDERS: PCP Nurse Practitioner Family; Referring Provider Nurse Practitioner Family; Visit Provider Student in an Organized Health Care Education/Training Program
DX: M25.522 Pain in left elbow (principal); G56.32 Lesion of radial nerve, left upper limb
CPT/HCPCS: 73080

== ENCOUNTER 2020-11-25 16:40 | Outpatient (REF) | payer MEDICAID, SELFPAY ==
[2020-11-25 21:30] LABS: Anion Gap 11.5 mmol/L (3-11); BUN 11 mg/dL (7-18); CO2 25.5 mmol/L (21.0-32.0); CREATININE 0.6 mg/dL (0.55-1.02); Calcium 9.2 mg/dL (8.5-10.1); Chloride 107 mmol/L (98-107); Glucose 81 mg/dL (74-106); Potassium 4.9 mmol/L (3.5-5.1); Sodium 144 mmol/L (136-145)
== END 2020-11-25 16:41 | disposition home or self-care (01) ==
LOC: NCHCN 16:40
PROVIDERS: PCP Nurse Practitioner Family; Visit Provider Nurse Practitioner Family
DX: I10 Essential (primary) hypertension (principal); F41.8 Other specified anxiety disorders; E66.9 Obesity, unspecified
CPT/HCPCS: 80048

== ENCOUNTER 2020-12-02 08:54 | Outpatient (CLI) | payer MEDICAID, SELFPAY ==
--- NOTE | 2020-12-02 | DI.US_ITS ---
Exam(s) US PAIN CLINIC NEEDLE GUIDANCE EXAM: CHRONIC BACK AND NECK PAIN,ULTRASOUND GUIDED TPI COMPARISON: No exams were available for comparison TECHNIQUE: Ultrasound performed using standard protocol. FINDINGS: Sonography was provided for Dr. Goode during the performance of a ultrasound-guided trigger point inj ection. Please refer to the procedure report for complete details. DATA REPOSITORY:
[2020-12-02 08:00] VITALS: BP 138/88; PULSE 96; RESP 18; TEMP 37.3; O2SAT 100
[2020-12-02 08:39] VITALS: PULSE 91; O2SAT 97
--- NOTE | 2020-12-02 08:41 | PDOC.PAIN_ITS ---
Pain Clinic Procedure Note Procedure Note Procedure Note: ULTRASOUND GUIDED RIGHT Rhomboid and Trapezius Muscle and LEFT Latisimus dorsi trigger point INJECTIONS Date of service: December 02, 2020 Pre-Procedural Evaluation: Antonio Huizar has been referred to the [facility] for an Ultrasound Guided RIGHT Rhomboid and Trapezius Muscle and LEFT Latisimus dorsi trigger point INJECTIONS for a chief complaint of mid-back pain. DX: Muscle pain Pre-procedure Pain Score: 5/10 Patient was interviewed and the medical record reviewed. There were no medical, pharmacologic, radiographic, or other structural contraindications to preforming an ultrasound guided injection. Risks and expected side effects as well as potential benefits of the procedure were reviewed. The patient consent form was signed and witnessed. Standard time-out procedure was performed. The use of direct ultrasound visualization of the needle (rather than a non- guided injection) was required to increase patient safety by excluding inadvertent intramuscular, intratendinous, or intraneural needle placement and minimizing bleeding by avoiding osteochondral or vascular injury from the needle. Additionally, the increased accuracy of placement may increase clinical effectiveness and will allow higher diagnostic specificity when evaluating effectiveness of this injection. Procedure Description: The patient was placed in the prone position and automated blood pressure cuff and pulse oximeter applied for monitoring during the procedure and recorded in the medical record. Pre-injection ultrasound scanning of the area of interest was performed using a linear transducer, identifying relevant anatomy, landmarks, and neurovascular structures allowing for optimal needle path. The site was then prepared in the usual sterile fashion, using thorough Chlorhexadine preparation of the skin and sterile draping. The same ultrasound transducer was then passed into the sterile field using sterile probe cover and sterile ultrasound gel. The injection target was again visualized. Skin and subcutaneous tissues were anesthetized with 4 mL of 1% Lidocaine. A 21 guage 3.5 Pajunk needle was placed under live ultrasound guidance, using an in- plane approach, to the target area. After visualization of the needle tip at the target area, a mixture of 5 mL 1% Lidocaine was delivered after negative aspiration for blood. Ultrasound images were captured and stored for documentation purposes. Post-procedure Pain Score: 1/10 Vital signs were stable throughout the procedure and were as recorded in the docflowsheet by the nursing staff. Follow up plans and appointments were discussed with the patient.Post procedure instruction was given as documented in nursing documentation and having met discharge criteria, they were discharged from the [facility]. COMMENTS: No complications. No steroids used. Pieter Goode DO, MPH Pain Management
[2020-12-02] MEDS: Lidocaine 1% Pres-Free 5 ML VIAL IJ (08:42)
== END 2020-12-02 09:14 ==
PROVIDERS: PCP Nurse Practitioner Family; Visit Provider Preventive Medicine Occupational Medicine
DX: M54.6 Pain in thoracic spine (principal)
CPT/HCPCS: 20553; 76942

== ENCOUNTER 2020-12-07 02:51 | Outpatient (CLI) | payer MEDICAID, SELFPAY ==
--- NOTE | 2020-12-07 09:50 | DI.MRI_ITS ---
Exam(s) MR UPPER JOINT LT WO EXAM: MR UPPER JOINT LT WO CLINICAL HISTORY: RADIAL TUNNEL SYNDROME,LT ELBOW CHONDROMALACIA,LT LAT EPICONDYLITIS,PAIN,. TECHNIQUE: Multiplanar multisequence MRI was performed. COMPARISON: Priors available for comparison. FINDINGS: Bones: There is no fracture or contusion pattern. Joints: No joint effusion. The articular surfaces are well maintained. Muscles: Unremarkable. Tendons: Biceps tendon: Unremarkable. Triceps tendon: Unremarkable. Common flexor tendon: Unremarkable. Common extensor tendon: There does appear to be mild hyperintense signal in the common extensor tendo n. This may represent lateral epicondylitis. Ligaments: Radial collateral ligament complex: Unremarkable. Ulnar collateral ligament complex: Unremarkable. Soft tissues: Unremarkable. IMPRESSION: Findings suspicious for lateral epicondylitis. DATA REPOSITORY:
== END 2020-12-07 03:11 ==
PROVIDERS: PCP Nurse Practitioner Family; Visit Provider Student in an Organized Health Care Education/Training Program
DX: M25.522 Pain in left elbow (principal); M94.222 Chondromalacia, left elbow; M77.12 Lateral epicondylitis, left elbow
CPT/HCPCS: 73221

== ENCOUNTER 2020-12-27 08:49 | Emergency (ER) | payer MEDICAID, SELFPAY ==
[2020-12-27 08:55] VITALS: BP 146/92; PULSE 116; RESP 18; TEMP 36.6; O2SAT 96
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
[2020-12-27 09:04] VITALS: BP 123/80
--- NOTE | 2020-12-27 09:15 | DI.US_ITS ---
Exam(s) US EXTREMITY VENOUS BI EXAM: US EXTREMITY VENOUS BI CLINICAL HISTORY: R leg swelling, r/o dvt TECHNIQUE: Grayscale, color, and doppler imaging of the deep venous system of both lower extremities was performed. COMPARISON: US US PAIN CLINIC NEEDLE GUIDANCE from 12/02/2020 FINDINGS: There is no evidence of intraluminal thrombus and there is normal compression and augmentation demons trated within the common femoral veins, femoral veins, and popliteal veins of both lower extremities. In the calves the interrogated veins also exhibit normal compression/ augmentation properties. The greater saphenous veins also appear patent as do the saphenofemoral junctions bilaterally.. IMPRESSION: 1. No ultrasound evidence of DVT in either lower extremity. DATA REPOSITORY:
== END 2020-12-27 12:36 | disposition home or self-care (01) ==
PROVIDERS: Emergency Provider Physician Assistant; PCP Nurse Practitioner Family
DX: R60.0 Localized edema (principal)
CPT/HCPCS: 99284; 93970; 99283